=== PATIENT | female | born 1965 | race African-American/Black ===

== ENCOUNTER 2021-09-28 10:35 | Emergency (ER) | payer OTHER ==
[~2021-09-28] VITALS: Ht 157.5 cm; Wt 89.0 kg
[2021-09-28 10:43] VITALS: BP 140/96
[2021-09-28] MEDS ORDERED: NYQUIL (10:50)
== END 2021-09-28 14:28 | disposition home or self-care (01) ==
LOC: ER 11:42
DX: R05.9 Cough, unspecified (principal); I49.9 Cardiac arrhythmia, unspecified; Z98.890 Other specified postprocedural states
CPT/HCPCS: 71045; 93005; 99283